=== PATIENT | male | born 1955 | race Caucasian/White ===

== ENCOUNTER 2017-10-21 21:55 | Emergency (ER) | payer OTHER ==
[~2017-10-21] VITALS: Ht 188 cm; Wt 80.7 kg
[~2017-10-21 21:55] MED LIST: DEPA500T PO
[2017-10-21 22:02] VITALS: BP 136/72; PULSE 74; RESP 16; TEMP 98.9; O2SAT 95
[2017-10-21] MEDS ORDERED: DEPA500T PO (22:10)
[2017-10-21] MEDS ORDERED: MELO7.5T27 PO (22:10)
[2017-10-21] MEDS ORDERED: TETANUS/DIPHTHERIA TOXOID ADULT 0.5 ML VIAL IM ONE (22:15)
[2017-10-21] MEDS ORDERED: LIDOCAINE 1%/EPINEPHrine 1:100,000 SOLN 20 ML VIAL INFIL ONE (22:15)
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
== END 2017-10-21 22:52 | disposition home or self-care (01) ==
LOC: PHED 21:55
DX: S61.012A Laceration without foreign body of left thumb without damage to nail, initial encounter (principal); W26.0XXA Contact with knife, initial encounter; Y93.9 Activity, unspecified; Y99.0 Civilian activity done for income or pay; Z23 Encounter for immunization
CPT/HCPCS: 12002; 90471; 90714